=== PATIENT | male | born 1980 ===

== ENCOUNTER 2022-06-02 19:03 | Emergency (ER) | payer SELFPAY ==
[2022-06-02] MEDS ORDERED: fentaNYL CITRATE 100 MCG/2 ML VL IV ONE ×2 (19:30→21:30)
[2022-06-02 23:51] VITALS: BP 141/76
== END 2022-06-03 00:12 | disposition short-term general hospital (02) ==
LOC: ER 19:03
DX: S53.005A Unspecified dislocation of left radial head, initial encounter (principal); S63.075A Dislocation of distal end of left ulna, initial encounter; Z20.822 Contact with and (suspected) exposure to COVID-19; V86.69XA Passenger of other special all-terrain or other off-road motor vehicle injured in nontraffic accident, initial encounter; Y93.89 Activity, other specified; Y92.89 Other specified places as the place of occurrence of the external cause; Y99.8 Other external cause status
CPT/HCPCS: 36415; 73090; 73120; 87426; 96374; 96376; 99285; J3010